=== PATIENT | female | born 1955 | race Caucasian/White ===

== ENCOUNTER 2021-07-01 11:30 | Emergency (ER) | payer OTHER ==
[~2021-07-01] VITALS: Ht 157.5 cm; Wt 59.1 kg
[2021-07-01 11:43] VITALS: BP 148/93
== END 2021-07-01 16:27 | disposition left against medical advice (07) ==
LOC: ER 11:31
DX: Z04.1 Encounter for examination and observation following transport accident (principal); Z53.21 Procedure and treatment not carried out due to patient leaving prior to being seen by health care provider; V49.88XA Car occupant (driver) (passenger) injured in other specified transport accidents, initial encounter; Y93.89 Activity, other specified; Y92.89 Other specified places as the place of occurrence of the external cause; Y99.9 Unspecified external cause status

== ENCOUNTER 2025-02-03 20:04 | Emergency (ER) | payer BC, OTHER ==
[~2025-02-03] VITALS: Ht 157.5 cm; Wt 71.5 kg
[2025-02-03 20:13] VITALS: TEMP 98.3
[2025-02-03] MEDS ORDERED: famotidine/PF 10 mg/ml inj IV ONE (20:25)
--- NOTE | 2025-02-03 20:31 | Physician Documentation ---
History of Present Illness ~ Chief Complaint: Allergic Reaction Stated Complaint: BEES STING ON TONGUE Time Seen by MD: 20:23 HPI This is a 69-year-old female who presents for evaluation of tongue swelling. She states that she was eating a sandwich and apparently there was a bee on a sandwich. The bee stung her into the tongue. She developed tongue swelling shortly afterwards. Denies any shortness a breath. Denies chest pain. Denies any nausea vomiting diarrhea. It has never happened in the past. Did not attempt to treat it. Denies any concern for tobacco, alcohol or illicit substances use Medication Reconciliation Allergies: Coded Allergies: codeine (Unverified Adverse Reaction, Mild, NAUSEA, 02/03/25) Review of Systems ROS 10 point review of systems was performed and unless noted above in HPI is negative for acute process/complaint. Physical Exam Vital Signs: Temperature: 98.3, Source: Temporal, Heart Rate: 111, Respiratory Rate: 18, BP: 160/112, Pulse Oximetry: 100, Weight: 71.500 Oxygen Flow Rate: 0 Physical Exam GENERAL: Awake, alert, oriented, GCS 15, no apparent distress, non-toxic appearing, answers questions, follows commands appropriately. Examined in bed 2. HEENT: Atraumatic, normocephalic, pupils equal, extraocular muscles intact, sclerae anicteric, mucus membranes moist, oropharynx is clear, no stridor. NECK: supple, full active range of motion, trachea midline, no thyromegaly, no lymphadenopathy, no JVD. CARDIOVASCULAR: regular rate/rhythm, no murmurs/gallops/rubs, Pulses are 2+ in all extremities and symmetric. Capillary refill less than 2 seconds. PULMONARY: Nonlabored, good air movement ,no respiratory distress, speaking in full sentences, clear to auscultation bilaterally, no wheezing, no ronchi, no rales, no accessory muscle use. GASTROINTESTINAL: Soft, non-tender, non-distended, normal active bowel sounds, no organomegaly, no pulsatile masses, no CVA tenderness. NEUROLOGIC: Lucid with normal mental status. Normal facial symmetry. Moves all extremities symmetrically and with purpose. No truncal ataxia. Speech is fluid without evidence of dysarthria or aphasia, no focal deficits appreciated. MUSCULOSKELETAL: There is full range of motion of all extremities. There is no joint pain or joint swelling or joint erythema. There is no muscle pain or tenderness or swelling. EXTREMITIES: warm, well-perfused, no cyanosis, no clubbing, no edema, no acute deformities. Skin: warm, dry, no rashes or lesions, no jaundice, no petechiae orpurpura. No ecchymosis. PSYCHIATRIC: Normal affect, normal insight, normal concentration. Focused exam: There is significant swelling to the tongue. No bleeding. Posterior pharynx is patent. The patient is able to breathe through her nose. Progress Results/Orders Results/Orders Completed Orders - ANA JEAN DO Epinephrine Inj (Adrenalin Inj) (02/03/25 20:24) Diphenhydramine Inj (Benadryl Inj.) (02/03/25 20:25) Dexamethasone Inj (Decadron 10mg/Ml Inj) (02/03/25 20:24) Famotidine/Pf Iv Inj (Pepcid Iv Inj) (02/03/25 20:25) Medications Received in ER Medications (Trade) Dose Ordered Sig/Veronique Route PRN Reason Start Time Stop Time Status Last Admin Dose Admin (Pepcid IV inj) 20 mg ONCE ONCE IV 02/03/25 20:15 02/03/25 20:16 DC 02/03/25 20:34 20 MG (Benadryl inj.) 50 mg ONCE ONCE IV 02/03/25 20:15 02/03/25 20:16 DC 02/03/25 20:34 50 MG (0.9% sodium chloride (NS) 1000ml IV soln) 1,000 ml ONCE ONCE IVB 02/03/25 20:15 02/03/25 20:16 DC 02/03/25 20:39 1,000 ML (Adrenalin inj) 0.3 mg ONCE STAT IM 02/03/25 20:24 02/03/25 20:27 DC 02/03/25 20:31 0.3 MG (Decadron 10mg/ ml inj) 10 mg ONCE STAT IV 02/03/25 20:24 02/03/25 20:29 DC 02/03/25 20:39 10 MG Vital Signs 02/03/25 02/03/25 20:13 20:37 Temp 98.3 Pulse 111 Resp 18 B/P (MAP) 160/112 Pulse Ox 100 O2 Flow Rate 0 Medical Decision Making Findings Facility Status: ED Holds, RME process The plan was discussed with the patient, who demonstrates clear understanding of the plan and is in agreement with the plan unless otherwise noted in the chart. All questions have been answered, all concerns were addressed unless otherwise documented. I was available throughout their ED stay for frequent reassessment and questions. Differential Diagnoses (considered and possible or likely): [Allergic reaction, anaphylaxis, anaphylactic shock, less likely angioedema] ??Differential Diagnoses (considered and unlikely, not requiring evaluation currently): [See above] MDM Data Please see [facility] for the following: Independent Historians and external Records Review. Historian: [Patient] Independent Historians: ?[None] Medication Management: [Reviewed medication list] Social History and determinants: [Reviewed] Please see the body of the note for the following: Any independent interpretations of ECG, imaging studies. All vitals signs/haemodynamics, ordered tests were independently reviewed and interpreted by myself. Nursing triage complaint and vitals reviewed, additional nursing notes were reviewed as available and I agree unless otherwise noted or documented in contradiction in the chart Vital Signs: Independently reviewed Labs: Independently interpreted Imaging: Independently interpreted Old Medical Records: Independently reviewed, see [facility] for relevant summary and information Pulse Oximetry: [99%] interpreted as [normal on room air] by me [Director Of Recruitment: [Regular Rate, Regular rhythm, no ectopy, NSR] reviewed and interpreted by me] Additionally notably showing: [Hemodynamically stable] Tests considered but not ordered include: [Hematologic workup and imaging has been considered but does not appear to be necessary given clinical nature of diagnosis] Social Determinants of Health Impact: Patient was evaluated in [facility], or [facility] [place] healthcare due to below par ratio of patient to medical providers. [] Comorbid Conditions Impacting Present Evaluation and Care/Treatment: [None] Management Discussions with other Healthcare Providers: [None] Treatment and Disposition Medication Management (Given or considered): [Standard anaphylaxis treatment]. See EMR for details Consideration for Hospitalization/Escalation/Deescalation of Care: Admission for observation has been considered, [however the patient is able to tolerate p.o., their symptoms are controlled, they are able to rely on oral medications, and their chief complaint/diagnosis can be managed on outpatient basis.] ?ED Course:?[After multiple reassessments and extensive period of observation, the patient's symptoms have completely resolved. She desires to go home.] ?Shared decision making:?[Patient is hemodynamically stable for discharge home with follow with their primary care provider. [ ] Specific and cautious return precautions provided and discussed with full understanding. Any incidental findings were also discussed and follow up recommendations given. [] All questions answered. Patient/family were able to verbalize back return precautions. Patient/family agree to plan. Copies of imaging and laboratory s tudies were provided.] Code status:?FULL Please see the full Electronic Medical Record for full details of nursing documentation, medications list, other records of complete past medical history and conditions, vital signs, laboratory studies, and any radiologic study interpretations by radiologists. Portions of this note were completed using [employer] dictation software and as a result there may exist minor errors in spelling. I have reviewed elements of past family and social history and agree as included in note. Departure Disposition: HOME / SELF CARE / HOMELESS Impression: Primary Impression: Anaphylactic reaction to bee sting Condition: Improved Discharge Instructions: Anaphylactic Reaction, Adult, [id number] Referrals: NO PRIMARY CARE PROVIDER (PCP) Prescriptions Epinephrine (Epipen 2-Garrett) 0.3 Mg/0.3 Ml Auto.injct 1 SYR IM ONCE for 1 Day, #1 PKT 0 Refills Prov: ANA JEAN DO 02/03/25 Education Educated: Patient, Family Educated regarding: diagnosis, treatment, prognosis, need for follow up Critical Care Note Critical Care Note CRITICAL CARE TIME: [45 ] minutes Treatments/Evaluations: Close monitoring and treatment of unstable vital signs, cardiorespiratory, and neurologic status, while maintaining tight balance of fluid, respiratory, and cardiac interventions. This time includes discussing the case with the patient and the patients family. This time does not include all procedures stated elsewhere in this record. This time also includes reviewing old records, labs and radiological studies. This time includes examining and re- examining the patient. Additionally, this time also includes arranging care with admitting and consulting physicians. Signature Scribe Signature: No scribe Attestation: This note accurately reflects clinical decisions, work performed by myself, DO MIRANDA Ramirez NICHOLAS M DO Feb 03, 2025 20:31
[2025-02-03] MEDS: famotidine/PF 10 mg/ml inj IV ONE (20:34)
[2025-02-03] MEDS: normal saline 1000ML IV soln IVB ONE (20:39)
[2025-02-03] MEDS: dexamethasone sod phosphate 10mg/ml inj IV STA (20:39)
[2025-02-03] MEDS ORDERED: EPIN0.3P3 IM (23:26)
[2025-02-03 23:37] VITALS: BP 136/95; PULSE 97; RESP 15; O2SAT 99
== END 2025-02-03 23:50 | disposition home or self-care (01) ==
LOC: ER 20:04
DX: T63.441A Toxic effect of venom of bees, accidental (unintentional), initial encounter (principal); T78.2XXA Anaphylactic shock, unspecified, initial encounter; R22.0 Localized swelling, mass and lump, head; Z88.5 Allergy status to narcotic agent; Y92.89 Other specified places as the place of occurrence of the external cause
CPT/HCPCS: 96361; 96372; 96374; 96375; 99291; J0169; J1100; J1200; J3490; J7030